=== PATIENT | female | born 1945 | race Caucasian/White ===

== ENCOUNTER → 2018-04-01 13:49 | Outpatient (POV) | payer MEDICARE, SELFPAY | DX: Z00.00 Encounter for general adult medical examination without abnormal findings (principal) ==

== ENCOUNTER → 2018-08-18 08:57 | Outpatient (CLI) | payer MEDICARE, SELFPAY ==
--- NOTE | 2018-08-18 08:59 | XR_ITS ---
XR DEXA axial skeleton HISTORY: ITS.REASON: POST-MENOPAUSAL ORDERING PHYSICIAN: Roberta Monteiro MD PATIENT AGE: 73 years COMPARISON: None FINDINGS: The BMD measured at the Left femoral neck is 0.825 g/cm squared with a T score of -1.5. This is considered Osteopenic according to the World Health Organization criteria. Fracture risk is Moderate. Treatment is advised. IMPRESSION: Osteopenia with moderate fracture risk. Treatment suggested. Recommend follow-up exam August 2020.
== END ==
PROVIDERS: PCP Family Medicine; Visit Provider Family Medicine
DX: Z78.0 Asymptomatic menopausal state (principal)
CPT/HCPCS: 77080

== ENCOUNTER 2019-01-12 11:55 | Outpatient (CLI) | payer MEDICARE, SELFPAY ==
[2019-01-12 12:10] VITALS: BP 181/91; PULSE 74; RESP 18; TEMP 36.4; O2SAT 98
== END 2019-01-12 12:25 | disposition home or self-care (01) ==
LOC: INF 11:59
PROVIDERS: Visit Provider Family Medicine
DX: Z78.0 Asymptomatic menopausal state (principal); M85.80 Other specified disorders of bone density and structure, unspecified site
CPT/HCPCS: 96372; J0897

== ENCOUNTER → 2019-04-09 10:27 | Outpatient (CLI) | payer MEDICARE, SELFPAY ==
--- NOTE | 2019-04-09 11:20 | XR_ITS ---
XR KUB HISTORY: ITS.REASON: NAUSEA,ABD CRAMPING,BLOATING,DIVERTICULOSIS ORDERING PHYSICIAN: Aylin Cao APRN PATIENT AGE: 73 years COMPARISON: : FINDINGS: There is mild amount retained colonic feces. No intestinal obstruction or free air evident. There are multiple pelvic calcifications present consistent with phleboliths. IMPRESSION: Mild constipation
== END ==
PROVIDERS: PCP Family Medicine; Visit Provider Nurse Practitioner Family
DX: R11.0 Nausea (principal); R10.9 Unspecified abdominal pain; R14.0 Abdominal distension (gaseous); K57.90 Diverticulosis of intestine, part unspecified, without perforation or abscess without bleeding
CPT/HCPCS: 74018

== ENCOUNTER 2019-07-20 11:51 | Outpatient (CLI) | payer MEDICARE, SELFPAY ==
[2019-07-20 12:05] VITALS: BP 148/95; PULSE 59; RESP 18; O2SAT 96
== END 2019-07-20 12:07 | disposition home or self-care (01) ==
LOC: INF 11:51
PROVIDERS: Visit Provider Family Medicine
DX: M85.89 Other specified disorders of bone density and structure, multiple sites (principal)
CPT/HCPCS: 96372; J0897

== ENCOUNTER → 2021-11-20 08:47 | Outpatient (CLI) | payer MEDICARE, SELFPAY ==
--- NOTE | 2021-11-20 08:53 | XR_ITS ---
FINAL REPORT TECHNIQUE: Bone mineral density was calculated of the lumbar spine and hip. CLINICAL HISTORY: . OSTEOPOROSIS FINDINGS: Using L1-4, the bone mineral density of the spine is 1.314 g/cm2, corresponding to T-score of 2.3. Using the left hip, the bone mineral density of the femoral neck is 0.674 g/cm2, corresponding to a T-score of -1.6. NOTE: T-score: Standard deviation compared with peak bone mass of young adult mean. *Following the recommendations of the International Society of Bone densitometry, classification of hip BMD is based on the lower of two T-scores; total hip or femoral neck. IMPRESSION: Normal bone mineral density of the lumbar spine. Diminished bone mineral density of the left hip consistent with osteopenia. Probability of major osteoporotic fracture according to FRAX risk assessment tool is 13% Reviewed, Interpreted and Dictated by Samm Clifton III, MD Transcribed by Francisca Shen Authenticated by Samm Clifton III, MD on 11/20/2021 11:38:07 AM [facility]
== END ==
PROVIDERS: PCP Family Medicine; Visit Provider Family Medicine
DX: M81.0 Age-related osteoporosis without current pathological fracture (principal); M19.90 Unspecified osteoarthritis, unspecified site
CPT/HCPCS: 77080